=== PATIENT | female | born 1965 | race Caucasian/White ===

== ENCOUNTER 2020-01-20 14:35 | Outpatient (REF) | payer MEDICAID, SELFPAY ==
[2020-01-20 16:34] LABS: Basophils Absolute Auto 0.1 X10*3/uL (0.0-0.2); Basophils Percent Auto 0.7 % (0-2); Eosinophils Absolute Auto 0.1 X10*3/uL (0.0-0.4); Eosinophils Percent Auto 1.4 % (0-4); Hematocrit 36.3 % (37-47); Hemoglobin 11.6 g/dl (12.0-16.0); Imm Gran Abs Auto 0.02 X10*3/uL (0.00-0.03); Imm Gran Pct Auto 0.3 % (0.0-0.4); Lymphocytes Absolute Auto 1.8 X10*3/uL (1.2-4.9); Lymphocytes Percent Auto 24.6 % (20-40); MANUAL DIFF FLAG NO; Mean Corpuscular Hemoglobin 28.1 pg (27.0-33.0); Mean Corpuscular Volume 87.9 fL (80-98); Mean Platelet Volume 11.1 fL (9.4-12.3); Monocytes Absolute Auto 0.5 X10*3/uL (0.1-1.2); Monocytes Percent Auto 6.3 % (2-11); Neutrophils Absolute Auto 4.9 X10*3/uL (2.0-8.3); Neutrophils Percent Auto 66.7 % (45-73); Platelet Count 373 X10*3/uL (160-400); Red Blood Count 4.13 X10*6/uL (4.20-5.50); Red Cell Distribution Width 13.2 % (11.0-16.0); White Blood Count 7.3 X10*3/uL (4.8-10.8)
[2020-01-20 17:22] LABS: Thyroid Stimulating Hormone 0.28 mIU/mL (0.32-4.0)
[2020-01-20 17:54] LABS: Ferritin 42 ng/mL (10-250)
== END 2020-01-20 14:36 | disposition home or self-care (01) ==
LOC: HO.HMGCLDS 14:35
PROVIDERS: PCP Internal Medicine; Visit Provider Internal Medicine
DX: D64.9 Anemia, unspecified (principal); E78.00 Pure hypercholesterolemia, unspecified; I10 Essential (primary) hypertension; N30.00 Acute cystitis without hematuria; R30.0 Dysuria; R35.0 Frequency of micturition
CPT/HCPCS: 36415; 82728; 84443; 85025; 87086

== ENCOUNTER 2020-03-04 12:35 | Outpatient (REF) | payer MEDICAID, SELFPAY ==
[2020-03-04 14:56] LABS: Vitamin B12 315 pg/mL (200-900)
[2020-03-05 08:56] LABS: Lyme Abs Screen <0.90 index
== END 2020-03-04 12:36 | disposition home or self-care (01) ==
LOC: HO.HMGCLDS 12:35
PROVIDERS: PCP Internal Medicine; Visit Provider Internal Medicine
DX: G57.81 Other specified mononeuropathies of right lower limb (principal); R51.9 Headache, unspecified
CPT/HCPCS: 82607; 86618

== ENCOUNTER 2020-04-23 10:26 | Outpatient (REF) | payer MEDICAID, SELFPAY ==
[2020-04-23 11:44] LABS: Cholesterol 229 mg/dL; HDL Cholesterol 63 mg/dL; LDL Cholesterol Calculated 149 mg/dl; Triglycerides 86 mg/dL
[2020-04-23 12:04] LABS: Thyroid Stimulating Hormone 1.25 uIU/mL (0.32-4.0)
== END 2020-04-23 10:27 | disposition home or self-care (01) ==
LOC: HO.HMGCLDS 10:26
PROVIDERS: PCP Internal Medicine; Visit Provider Internal Medicine
DX: E03.8 Other specified hypothyroidism (principal); D64.9 Anemia, unspecified
CPT/HCPCS: 36415; 80061; 84443

== ENCOUNTER 2020-04-25 09:27 | Outpatient (REF) | payer MEDICAID, SELFPAY ==
--- NOTE | 2020-04-25 09:30 | MM_ITS ---
EXAMINATION: MM SCREENING DIGITAL BREAST TOMOSYNTHESIS, BILATERAL CLINICAL INFORMATION: Screening. Asymptomatic. The lifetime risk of breast cancer based on the Tyrer-Cuzick Model is 8%. COMPARISON: Mammography: 04/15/2019, 03/21/2018, 03/13/2017, 02/18/2017 TECHNIQUE: Digital breast tomosynthesis is performed in both the craniocaudal and mediolateral oblique views along with computer-aided detection (CAD). Synthesized 2D images are generated from the tomosynthesis. Additional exaggerated right CC view is provided. FINDINGS: There are scattered areas of fibroglandular density (ACR BI-RADS breast composition Category b). There are no significant masses, abnormal calcifications, or other abnormalities. There is a stable smooth nodule again seen 6:00 right breast similar to prior studies. Low right axillary tail node stable. No significant changes from prior studies. MM/MM tomosynthesis screening BI IMPRESSION: No mammographic evidence of malignancy. ASSESSMENT: BI-RADS 2: Benign RECOMMENDATION: Routine annual mammography screening. This patient's information was entered into a reminder system with a target due date for their next mammogram.
== END 2020-04-25 09:28 | disposition home or self-care (01) ==
LOC: HO.MAMMO 09:27
PROVIDERS: PCP Internal Medicine; Visit Provider Internal Medicine
DX: Z12.31 Encounter for screening mammogram for malignant neoplasm of breast (principal)
CPT/HCPCS: 77063; 77067

== ENCOUNTER 2020-10-08 10:38 | Outpatient (REF) | payer MEDICAID, SELFPAY ==
[2020-10-08 14:25] LABS: Alanine Aminotransferase 19 U/L (0-31); Albumin Level 3.9 g/dL (3.5-5.0); Alkaline Phosphatase 80 U/L (39-117); Anion Gap 14 (12-20); Aspartate Amino Transferase 20 U/L (5-31); Bilirubin Total 0.5 mg/dL (0.0-1.0); Blood Urea Nitrogen 19 mg/dL (9-16); Calcium 8.9 mg/dL (8.4-10.2); Carbon Dioxide 23 mmol/L (22-29); Chloride 106 mmol/L (96-108); Cholesterol 211 mg/dL; Estimated Glomerular Filt Rate > 60; Glucose Random 78 mg/dL (60-115); HDL Cholesterol 58 mg/dL; LDL Cholesterol Calculated 138 mg/dl; Potassium 4.1 mmol/L (3.3-5.1); Sodium 139 mmol/L (135-145); Total Protein 6.3 g/dL (6.5-8.0); Triglycerides 78 mg/dL
[2020-10-08 14:36] LABS: Thyroid Stimulating Hormone 0.22 uIU/mL (0.32-4.0)
== END 2020-10-08 10:39 | disposition home or self-care (01) ==
LOC: HO.HMGCLDS 10:38
PROVIDERS: PCP Internal Medicine; Visit Provider Internal Medicine
DX: E03.9 Hypothyroidism, unspecified (principal); E78.00 Pure hypercholesterolemia, unspecified; I10 Essential (primary) hypertension; R53.83 Other fatigue
CPT/HCPCS: 36415; 80053; 80061; 84443

== ENCOUNTER 2021-05-08 09:46 | Outpatient (REF) | payer MEDICAID, SELFPAY ==
--- NOTE | ~2021-05-08 | MM_ITS ---
EXAMINATION: MM SCREENING DIGITAL BREAST TOMOSYNTHESIS, BILATERAL CLINICAL INFORMATION: Screening. Asymptomatic. The lifetime risk of breast cancer based on the Tyrer-Cuzick Model is 8%. COMPARISON: Mammography: 04/25/2020, 04/15/2019, 03/21/2018 TECHNIQUE: Digital breast tomosynthesis is performed in both the craniocaudal and mediolateral oblique views along with computer-aided detection (CAD). Synthesized 2D images are generated from the tomosynthesis. FINDINGS: There are scattered areas of fibroglandular density (ACR BI-RADS breast composition Category b). There are no significant masses, abnormal calcifications, or other abnormalities. Smooth nodule mid 6:00 right breast is similar to prior exams. There is no developing density. Low right axillary tail nodes stable. Skin contours are smooth. There are no significant changes. MM/MM tomosynthesis screening BI IMPRESSION: No significant changes from prior exams. ASSESSMENT: BI-RADS 2: Benign RECOMMENDATION: Routine annual mammography screening. This patient's information was entered into a reminder system with a target due date for their next mammogram.
== END 2021-05-08 09:47 | disposition home or self-care (01) ==
LOC: HO.MAMMO 09:46
PROVIDERS: PCP Internal Medicine; Visit Provider Internal Medicine
DX: Z12.31 Encounter for screening mammogram for malignant neoplasm of breast (principal)
CPT/HCPCS: 77063; 77067

== ENCOUNTER 2021-05-19 08:34 | Outpatient (REF) | payer MEDICAID, SELFPAY ==
[2021-05-19 11:30] LABS: MANUAL DIFF FLAG NO
[2021-05-19 11:37] LABS: Basophils Percent Auto 0.7 % (0-2); Eosinophils Absolute Auto 0.2 X10*3/uL (0.0-0.4); Eosinophils Percent Auto 3.5 % (0-4); Hematocrit 36.8 % (37.0-47.0); Hemoglobin 11.6 g/dl (12.0-16.0); Imm Gran Abs Auto 0.01 X10*3/uL (0.00-0.03); Imm Gran Pct Auto 0.2 % (0.0-0.4); Lymphocytes Absolute Auto 1.4 X10*3/uL (1.2-4.9); Mean Corpuscular HGB Conc 31.5 g/dl (31.0-35.0); Mean Corpuscular Hemoglobin 27.4 pg (27.0-33.0); Mean Platelet Volume 10.8 fL (9.4-12.3); Monocytes Absolute Auto 0.3 X10*3/uL (0.1-1.2); Neutrophils Absolute Auto 2.7 x10*3/uL (2.0-8.3); Neutrophils Percent Auto 58.6 % (45-73); Platelet Count 322 X10*3/uL (160-400); Red Blood Count 4.23 X10*6/uL (4.20-5.50); Red Cell Distribution Width 14.1 % (11.0-16.0); White Blood Count 4.6 X10*3/uL (4.8-10.8)
[2021-05-19 12:05] LABS: Alanine Aminotransferase 19 U/L (0-31); Alkaline Phosphatase 64 U/L (39-117); Anion Gap 13 (12-20); Aspartate Amino Transferase 18 U/L (5-31); Bilirubin Total 0.4 mg/dL (0.0-1.0); Blood Urea Nitrogen 27 mg/dL (9-16); Calcium 9.4 mg/dL (8.4-10.2); Carbon Dioxide 28 mmol/L (22-29); Chloride 105 mmol/L (96-108); Cholesterol 232 mg/dL; Estimated Glomerular Filt Rate 59; Glucose Random 86 mg/dL (60-115); HDL Cholesterol 51 mg/dL; LDL Cholesterol Calculated 162 mg/dl; Potassium 4.5 mmol/L (3.3-5.1); Sodium 141 mmol/L (135-145); Total Protein 6.6 g/dL (6.5-8.0); Triglycerides 95 mg/dL
[2021-05-19 12:29] LABS: T4 Thyroxine 9.2 ug/dL (4.5-12.0); Thyroid Stimulating Hormone 0.48 uIU/mL (0.32-4.0)
[2021-05-21 04:02] LABS: Triiodothyronine T3 Free 2.8 pg/mL (2.3-4.2)
== END 2021-05-19 08:35 | disposition home or self-care (01) ==
LOC: HO.HMGCLDS 08:34
PROVIDERS: Visit Provider Internal Medicine
DX: Z00.00 Encounter for general adult medical examination without abnormal findings (principal); E03.9 Hypothyroidism, unspecified; E78.00 Pure hypercholesterolemia, unspecified; I10 Essential (primary) hypertension; R87.619 Unspecified abnormal cytological findings in specimens from cervix uteri
CPT/HCPCS: 36415; 80053; 80061; 84436; 84443; 84481; 85025

== ENCOUNTER 2021-11-03 07:34 | Outpatient (REF) | payer MEDICAID, SELFPAY ==
[2021-11-03 09:20] LABS: Alanine Aminotransferase 23 U/L (0-31); Albumin Level 3.8 g/dL (3.5-5.0); Alkaline Phosphatase 81 U/L (39-117); Anion Gap 10 (12-20); Aspartate Amino Transferase 15 U/L (5-31); Bilirubin Total 0.6 mg/dL (0.0-1.0); Blood Urea Nitrogen 18 mg/dL (9-16); Calcium 8.6 mg/dL (8.4-10.2); Carbon Dioxide 27 mmol/L (22-29); Chloride 104 mmol/L (96-108); Cholesterol 217 mg/dL; Estimated Glomerular Filt Rate > 60; Glucose Random 89 mg/dL (60-115); HDL Cholesterol 52 mg/dL; LDL Cholesterol Calculated 151 mg/dl; Potassium 4.4 mmol/L (3.3-5.1); Sodium 137 mmol/L (135-145); Total Protein 6.2 g/dL (6.5-8.0); Triglycerides 72 mg/dL
[2021-11-03 09:46] LABS: Thyroid Stimulating Hormone 1.41 uIU/mL (0.32-4.0)
== END 2021-11-03 07:35 | disposition home or self-care (01) ==
LOC: HO.LAB 07:34
PROVIDERS: PCP Internal Medicine; Visit Provider Internal Medicine
DX: E03.9 Hypothyroidism, unspecified (principal); M70.51 Other bursitis of knee, right knee; Z76.89 Persons encountering health services in other specified circumstances
CPT/HCPCS: 36415; 80053; 80061; 84443

== ENCOUNTER 2022-05-14 10:28 | Outpatient (REF) | payer MEDICAID, SELFPAY ==
--- NOTE | ~2022-05-14 | MM_ITS ---
EXAMINATION: MM SCREENING DIGITAL BREAST TOMOSYNTHESIS, BILATERAL CLINICAL INFORMATION: Screening. Asymptomatic. The lifetime risk of breast cancer based on the Tyrer-Cuzick Model is 7%. COMPARISON: Mammography: 05/08/2021, 04/25/2020, 04/15/2019 TECHNIQUE: Digital breast tomosynthesis is performed in both the craniocaudal and mediolateral oblique views along with computer-aided detection (CAD). Synthesized 2D images are generated from the tomosynthesis. FINDINGS: There are scattered areas of fibroglandular density (ACR BI-RADS breast composition Category b). There are no significant masses, abnormal calcifications, or other abnormalities. There is no architectural abnormality or developing density. Stable smooth small oval nodule again noted mid 6:00 right breast similar to prior studies. The skin contours are smooth. MM/MM tomosynthesis screening BI IMPRESSION: No mammographic evidence of malignancy. ASSESSMENT: BI-RADS 2: Benign RECOMMENDATION: Routine annual mammography screening. This patient's information was entered into a reminder system with a target due date for their next mammogram.
== END 2022-05-14 10:29 | disposition home or self-care (01) ==
LOC: HO.MAMMO 10:28
PROVIDERS: PCP Internal Medicine; Visit Provider Internal Medicine
DX: Z12.31 Encounter for screening mammogram for malignant neoplasm of breast (principal)
CPT/HCPCS: 77063; 77067

== ENCOUNTER 2022-07-20 16:25 | Outpatient (REF) | payer MEDICAID, SELFPAY ==
[2022-07-20 16:33] LABS: MANUAL DIFF FLAG NO
[2022-07-20 17:24] LABS: Basophils Absolute Auto 0.1 X10*3/uL (0.0-0.2); Basophils Percent Auto 0.7 % (0-2); Eosinophils Absolute Auto 0.2 X10*3/uL (0.0-0.4); Eosinophils Percent Auto 2.4 % (0-4); Hemoglobin 11.8 g/dl (12.0-16.0); Imm Gran Abs Auto 0.02 X10*3/uL (0.00-0.03); Imm Gran Pct Auto 0.3 % (0.0-0.4); Lymphocytes Absolute Auto 2.2 X10*3/uL (1.2-4.9); Lymphocytes Percent Auto 30.7 % (20-40); Mean Corpuscular HGB Conc 31.9 g/dl (31.0-35.0); Mean Corpuscular Hemoglobin 27.8 pg (27.0-33.0); Mean Corpuscular Volume 87.3 fL (80.0-98.0); Mean Platelet Volume 10.4 fL (9.4-12.3); Monocytes Absolute Auto 0.5 X10*3/uL (0.1-1.2); Monocytes Percent Auto 7.6 % (2-11); Neutrophils Absolute Auto 4.1 x10*3/uL (2.0-8.3); Neutrophils Percent Auto 58.3 % (45-73); Platelet Count 345 X10*3/uL (160-400); Red Blood Count 4.24 X10*6/uL (4.20-5.50); Red Cell Distribution Width 13.7 % (11.0-16.0); White Blood Count 7.1 X10*3/uL (4.8-10.8)
[2022-07-20 17:45] LABS: Alanine Aminotransferase 43 U/L (0-31); Albumin Level 4.4 g/dL (3.5-5.0); Alkaline Phosphatase 79 U/L (39-117); Anion Gap 14 (12-20); Aspartate Amino Transferase 34 U/L (5-31); Bilirubin Total 0.4 mg/dL (0.0-1.0); Blood Urea Nitrogen 29 mg/dL (9-16); Calcium 9.4 mg/dL (8.4-10.2); Carbon Dioxide 29 mmol/L (22-29); Chloride 103 mmol/L (96-108); Cholesterol 274 mg/dL; Estimated Glomerular Filt Rate > 60; Glucose Random 89 mg/dL (60-115); HDL Cholesterol 66 mg/dL; LDL Cholesterol Calculated 183 mg/dl; Sodium 142 mmol/L (135-145); Triglycerides 128 mg/dL
[2022-07-20 18:02] LABS: Thyroid Stimulating Hormone 1.89 uIU/mL (0.32-4.0)
== END 2022-07-20 16:26 | disposition home or self-care (01) ==
LOC: HO.LAB 16:25
PROVIDERS: PCP Internal Medicine; Visit Provider Internal Medicine
DX: Z00.00 Encounter for general adult medical examination without abnormal findings (principal); E78.00 Pure hypercholesterolemia, unspecified; I10 Essential (primary) hypertension
CPT/HCPCS: 36415; 80053; 80061; 84443; 85025

== ENCOUNTER 2023-05-20 10:04 | Outpatient (REF) | payer MEDICAID, SELFPAY | END 2023-05-20 10:05 | disposition home or self-care (01) | LOC: HO.MAMMO 10:04 | PROVIDERS: PCP Internal Medicine; Visit Provider Internal Medicine | DX: Z12.31 Encounter for screening mammogram for malignant neoplasm of breast (principal) | CPT/HCPCS: 77063; 77067 ==

== ENCOUNTER → 2023-05-20 10:15 | Outpatient (BNV) | payer MEDICAID, SELFPAY | PROVIDERS: PCP Internal Medicine; Visit Provider Radiology Diagnostic Radiology | DX: Z12.31 Encounter for screening mammogram for malignant neoplasm of breast (principal) | CPT/HCPCS: 77063; 77067 ==

== ENCOUNTER 2023-08-02 08:08 | Outpatient (REF) | payer MEDICAID, SELFPAY ==
[2023-08-02 11:17] LABS: Alanine Aminotransferase 26 U/L (0-31); Albumin Level 3.9 g/dL (3.5-5.0); Alkaline Phosphatase 75 U/L (39-117); Anion Gap 11 (12-20); Aspartate Amino Transferase 23 U/L (5-31); Bilirubin Total 0.5 mg/dL (0.0-1.0); Blood Urea Nitrogen 21 mg/dL (9-16); Calcium 9.1 mg/dL (8.4-10.2); Carbon Dioxide 28 mmol/L (22-29); Chloride 105 mmol/L (96-108); Cholesterol 164 mg/dL (<200); Estimated Glomerular Filt Rate > 60; Glucose Random 93 mg/dL (60-115); HDL Cholesterol 57 mg/dL (>40); LDL Cholesterol Calculated 96 mg/dL (<100); Potassium 4.1 mmol/L (3.3-5.1); Sodium 140 mmol/L (135-145); Total Protein 6.9 g/dL (6.5-8.0); Triglycerides 57 mg/dL (<150)
[2023-08-02 11:34] LABS: Thyroid Stimulating Hormone 0.51 uIU/mL (0.32-4.0)
== END 2023-08-02 08:09 | disposition home or self-care (01) ==
LOC: HO.LAB 08:08
PROVIDERS: PCP Internal Medicine; Visit Provider Internal Medicine
DX: E03.9 Hypothyroidism, unspecified (principal); E78.00 Pure hypercholesterolemia, unspecified; I10 Essential (primary) hypertension
CPT/HCPCS: 36415; 80053; 80061; 84443

== ENCOUNTER 2024-06-05 13:09 | Outpatient (REF) | payer MEDICAID, SELFPAY ==
--- OUTSIDE RECORDS SUMMARY | 2024-06-05 13:27 | XMS_ITS | Encounter Summary ---
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 Encounter Details Date Type Department Care Team (Late st Contact Info) Description 05/08/2024 10:00 AM EST Office Visit Orthopedic Surgery - [place] [address] [phone] Clemente Nevarez DPM [address] [address] Bunion, right foot (Primary Dx); Contracture, right foot; Hammertoes of both feet Social History Tobacco Use Types Packs/Day Years Used Date Smoking Tobacco: Never Assessed Comments Unknown Sex and Gender Information Value Date Recorded Sex Assigned at Not on file Legal Sex Female 11:02 AM EDT Gender Identity Not on file Sexual Orientation Not on file documented as of this encounter Last Filed Vital Signs Vital Sign Reading Time Taken Comments Blood Pressure - - Pulse - - Temperature - - Respiratory Rate - - Oxygen Saturation - - Inhaled Oxygen Concentration - - Weight 108 kg (238 lb) 05/08/2024 10:12 AM EST Height 154.9 cm (5' 0.98 ) 05/08/2024 10:[address] Body Mass Index 44.99 05/08/2024 10:12 AM EST documented in this encounter Progress Notes * Clemente Nevarez DPM - 05/08/2024 10:00 AM EST Referring MD: Coleen IDENTIFIER: @TITLE@ Stan is a 58 y.o. year old female who presents for consultation. CC: Right foot pain HPI: 58-year-old female returns office chief complaint of right foot pain. Patient notes that the great toe continues to be painful on ambulation. Patient is having some increased contracture to her second digit which causes pain in close toed shoes. Patient was educated on surgical options versus continued conservative therapy previously. Patient would like to further discuss surgical intervention during today's visit. ROS: GENERAL: Pt denies nausea, fever, vomiting, chills, or shortness of breath. Pt in NAD. CARDIOLOGY: pt denies chest pain, palpitations LUNGS: pt denies shortness of breath MUSCULOSKELETAL: See HPI, otherwise no joint pain or swelling, back pain, or muscle pain. SKIN: see HPI, otherwise no lesions, rash or itching NEURO: No persistent headache, weakness or numbness The remainder of the review of systems is noncontributory PAST MEDICAL HISTORY: There is no problem list on file for this patient. SOCIAL HISTORY: Social History Tobacco Use Smoking status: Not on file Smokeless tobacco: Not on file Substance Use Topics Alcohol use: Not on file ACTIVE MEDICATIONS: No outpatient medications have been marked as taking for the 05/08/24 encounter (Office Visit) with Clemente Nevarez DPM. ALLERGIES: @ALL@ PHYSICAL EXAM: Height 1.549 m (60.98 ), weight 108 kg (238 lb). PODIATRIC EXAMINATION: GENERAL: Patient appears well nourished, with NAD. VASCULAR: Dorsalis pedis pulses are 2/4 bilaterally and Posterior tibial pulses are 2/4 bilaterally. Capillary filling time within normal limits the digits. No pallor on elevation or rubor on dependency. Positive hair growth. No varicosities. Denies rest pain or claudication pain. NEUROLOGICAL: Sharp/dull sensation intact, protective sensation intact 10/10 with 5.07 semmes lilly bilaterally, vibratory sensation with tuning fork intact to the tibial tuberosity. ORTHOPEDIC: Good muscle strength 5/5 of all flexors and extensors. Dorsi flexion of ankle ,10 degrees, plantar flexion WNL. No muscle atrophy. Severe bunion deformity with severe HAV deformity and second digit hammertoe contracture that is rigid. Pain on palpation of medial eminence. Pain over the PIPJ of the second digit on the right foot. DERMATOLOGICAL:.No masses or skin lesions noted. Normal skin temperature, normal skin turgor. BIOMECHANICS: STJ ROM wnl, MTJ ROM wnl, 1st MPJ ROM wnl. IMAGING: Radiographs taken and reviewed. No evidence of diandra abnormality noted. No evidence of fracture or dislocation noted. Mild narrowing of first metatarsal phalangeal joint appreciated. Mild arthrosis noted to dorsal midfoot, localized to midtarsal joints. Hammered digits noted to interphalangeal joints. Increase in metatarsal angle between 1st and 2nd ray. Accessory ossicles noted. No evide nce of foreign body. No evidence of gas or soft tissue. No evidence of cortical erosion noted. IMPRESSION: 1. Bunion, right foot 2. Contracture, right foot 3. Hammertoes of both feet PLAN: Pt was seen and examined, history reviewed. Treatment options for first MPJ arthritis with second digit hammertoe correction were discussed, non-operative treatment would involve tapping, strapping, adjustments in shoe gear, orthotics insoles,rest, bracing and edema control. There is potential for the deformities to stabilize without surgery yet there may still be a need for delayed surgery and joint distructive procedures. There is potential for prolonged pain with surgery and non-operative care would avoid incision problems, fixation complications and anesthesia risks. Surgery has added risks including but not limited to infection, incision pain, neuritis or numbness and eventual need for removal of hardware. Right foot cheilectomy with implant and hammertoe healing was discussed in relation to operative treatment. Recovery and post operative immobilization was discussed based on the various treatment options. A decision was made to pursue right foot cheilectomy with implant and second digit hammertoe surgery. Patient voices understanding of the risks and benefits and would like to proceed with surgery. Informed consent for surgery was obtained verbally and in writing today. Weight bearing status: Weightbearing as tolerated in surgical shoe for 4 to 6 weeks Work&Activity restrictions: Impact of undergoing surgery to work and daily activity was discussed today Pain management: Postoperative pain regiment were discussed in great detail with the patient. The patient was also encouraged to aggressively elevate and ice postoperatively to help with swelling andpain control. The patient was in agreement with this plan. The patient will be prescribed oxycodone5 mg every 6 hours for postoperative pain management. VTE Risk assessment: Risk of DVT/ PE were discussed in relation to immobilization, inactivity, injury, surgery, medication and personal risk factors. Signs and symptoms of a blood clot were discussedincluding action plan if the patient experiences these signs or symptoms. Methods of prevention and risk reduction were explained. Mechanical prophylaxis including ROM and mobilization is encouraged as much as possible. The patient???s risk for deep vein thrombosis was also assessed today. In regards to major risk factors they: - Do not have personal history of DVT - Do not have known active cancer - Do not have known clotting disorder - Do not have family history of DVT Pending foot surgery and current level of immobilization are risk factors. Measure taken to decrease their risk of deep vein thrombosis will consist of detailed education, as well as lower extremity range of motion. Chemical prophylaxis is not recommended based on patients history, procedure and postoperative plan. We discussed ASA 325mg qd as a precautionary measure to further decrease potential for clot formation for as long as the postoperative offloading device is required Planned procedure(s): Right foot cheilectomy with implant second digit hammertoe surgery WB status: Weightbearing as tolerated for 4 to 6 weeks in surgical shoe DVT Prophylaxis: 325 mg QD Pain medication: Oxycodone 5 mg every 6 hours Clemente Nevarez DPM documented in this encounter Plan of Treatment Upcoming Encounters Date Type Department Care Team (Latest Contact Info) Description 10/11/2024 7:30 AM EDT Hospital Encounter [facility] Main [place] [address] [place] [phone] Clemente Nevarez DPM [address] [address] 10/11/2024 7:30 AM EDT - 10/11/2024 9:30 AM EDT Surgery [facility] OR [address] [place] [phone] Clemente Nevarez DPM [address] [address] CHEILECTOMY RIGHT GREAT TOE [27085 (CPT??)] 10/24/2024 1:00 PM EDT Office Visit Orthopedic Surgery - [place] [address] 175 [facility] [address] [place] [phone] Clemente Nevarez, DPIgnacio [address] [facility] [address] [facility] [address] [place] [address] Scheduled Procedures Name Priority Associated Diagnoses Date/Ti me CHEILECTOMY GREAT TOE Bunion, right foot Contracture, right foot Hammertoes of both feet 10/11/2024 7:30 AM EDT ARTHROPLASTY TOE Bunion, right foot Contracture, right foot Hammertoes of both feet 10/11/2024 7:30 AM EDT documented as of this encounter Visit Diagnoses Diagnosis Bunion, right foot- Primary Bunion Contracture, right foot Hammertoes of both feet Bunion, right foot Bunion Contracture, right foot Hammertoes of both feet Bunion, right foot Bunion Contracture, right foot Hammertoes of both feet documented in this encounter Orders Case Request Count Last Ordered Date First Orde red Date CASE REQUEST OPERATING ROOM 1 05/08/2024 documented in this encounter Care Teams Career Development Specialist Relationship Specialty Start Date End Date Obdulia Horne MD [address] [place] [address] [place] [address] PCP - General 09/08/23 documented as of this encounter
--- OUTSIDE RECORDS SUMMARY | 2024-06-05 13:27 | XMS_ITS | Encounter Summary ---
Author Organization [facility] Address [address] [place] [phone] Care Team Providers Care Ironer Name Role Phone Obdulia Horne MD Primary Care Provider Encounter Details Date Type Department Care Team (Late st Contact Info) Description 05/29/2024 Telephone Orthopedic Surgery - [place] [address] [phone] Clemente Nevarez DPM [address] [address] Social History Tobacco Use Types Packs/Day Years Used Date Smoking Tobacco: Never Assessed Comments Unknown Sex and Gender Information Value Date Recorded Sex Assigned at Not on file Legal Sex Female 11:02 AM EDT Gender Identity Not on file Sexual Orientation Not on file documented as of this encounter Progress Notes * Tiff Gaffney - 05/29/2024 9:56 AM EST Rima is calling back in regarding getting booked for surgery. She states its been over 3 weeks and she still has not received a call. Please advise. Thanks documented in this encounter Plan of Treatment Upcoming Encounters Date Type Department Care Team (Latest Contact Info) Description 10/11/2024 7:30 AM EDT Hospital Encounter [facility] Main OR [address] [place] [phone] Clemente Nevarez DPM [address] [address] 10/11/2024 7:30 AM EDT - 10/11/2024 9:30 AM EDT Surgery [facility] Main [place] [address] [place] [phone] Clemente Nevarez DPM [address] [address] CHEILECTOMY RIGHT GREAT TOE [50335 (CPT??)] 10/24/2024 1:00 PM EDT Office Visit Orthopedic Surgery - [place] [address] [phone] Clemente Nevarez DPM [address] [address] Scheduled Procedures Name Priority Associated Diagnoses Date/Ti me CHEILECTOMY GREAT TOE Bunion, right foot Contracture, right foot Hammertoes of both feet 10/11/2024 7:30 AM EDT ARTHROPLASTY TOE Bunion, right foot Contracture, right foot Hammertoes of both feet 10/11/2024 7:30 AM EDT documented as of this encounter Visit Diagnoses Not on filedocumented in this encounter Care Teams Ironer Relationship Specialty Start Date End Date Obdulia Horne MD [address] [place] [address] [place] [address] PCP - General 09/08/23 documented as of this encounter
--- OUTSIDE RECORDS SUMMARY | 2024-06-05 13:27 | XMS_ITS | Clinical Summary ---
Author Organization 175 [facility] Address [address] [place] [address] Phone Care Team Providers Care Machine Fitter Name Role Phone Obdulia Horne MD Primary Care Provider [phone] Allergies No known active allergies Active Problems Problem Noted Date Diagnosed Date Bunion, right foot 05/08/2024 Contracture, right foot 05/08/2024 Hammertoes of both feet 05/08/2024 Encounters Date Type Department Care Team Description 05/29/2024 Telephone Orthopedic Surgery [place] [address] [phone] Clemente Nevarez DPM 05/08/2024 10:00 AM EST Office Visit Orthopedic [facility] [address] [phone] Clemente Nevarez DPM Bunion, right foot (Primary Dx); Contracture, right foot; Hammertoes of both feet 04/12/2024 Telephone Orthopedic [facility] [address] [phone] Clemente Nevarez DPM SURGERY from Last 3 Months Social History Tobacco Use Types Packs/Day Years Used Date Smoking Tobacco: Never Assessed Comments Unknown Sex and Gender Information Value Date Recorded Sex Assigned at Not on file Legal Sex Female 11:02 AM EDT Gender Identity Not on file Sexual Orientation Not on file Last Filed Vital Signs Vital Sign Reading Time Taken Comments Blood Pressure - - Pulse - - Temperature - - Respiratory Rate - - Oxygen Saturation - - Inhaled Oxygen Concentration - - Weight 108 kg (238 lb) 05/08/2024 10:12 AM EST Height 154.9 cm (5' 0.98 ) 05/08/2024 10:[address] Body Mass Index 44.99 05/08/2024 10:12 AM EST Plan of Treatment Upcoming Encounters Date Type Department Care Team (Latest Contact Info) Description 10/11/2024 7:30 AM EDT Hospital Encounter [facility] Main OR [address] [place] [phone] Clemente Nevarez DPM [address] [address] 10/11/2024 7:30 AM EDT - 10/11/2024 9:30 AM EDT Surgery [facility] Main [place] [address] [place] [phone] Clemente Nevarez DPM [address] [address] CHEILECTOMY RIGHT GREAT TOE [63713 (CPT??)] 10/24/2024 1:00 PM EDT Office Visit Orthopedic Surgery - [place] [address] [phone] Clemente Nevarez DPM [address] [address] Scheduled Procedures Name Priority Associated Diagnoses Date/Ti me CHEILECTOMY GREAT TOE Bunion, right foot Contracture, right foot Hammertoes of both feet 10/11/2024 7:30 AM EDT ARTHROPLASTY TOE Bunion, right foot Contracture, right foot Hammertoes of both feet 10/11/2024 7:30 AM EDT Health Maintenance Due Date Last Done Comments Breast Cancer Screening 1965 DTaP,Tdap,and Td Vaccines (1 - Tdap) 11/25/1983 Hepatitis B Vaccines (1 of 3 - 19+ 3-dose series) 11/25/1983 Cervical Cancer Screening: P ap Smear 1985 Pneumococcal Vaccine: 50+ Years (1 of 1 - PCV) 2014 Zoster Vaccines (1 of 2) 2014 Cholesterol Screening (Lipid Panel) 11/17/2023 Colorectal Cancer Screening: Colonoscopy 11/17/2023 Depression Screening 11/17/2023 HIV Screening 11/17/2023 Hepatitis C Screening 11/17/2023 Social Influencers of Health Screening 11/17/2023 COVID-19 Vaccine (4 - 2023-2 5 season) 2023 07/07/2020, 06/20/2020, 05/30/2020 Influenza Vaccine (#1) 2023 01/31/2014 RSV Immunization Patients 60 + Years Old (1 - 1-dose 75+ series) 11/25/2039 HIB Vaccines Aged Out No longer eligi ble based on patient's age to complete this topic HPV Vaccines Aged Out No longer eligi ble based on patient's age to complete this topic Hepatitis A Vaccines Aged Out No long er eligible based on patient's age to complete this topic IPV Vaccines Aged Out No longer eligi ble based on patient's age to complete this topic MMR Vaccines Aged Out No longer eligi ble based on patient's age to complete this topic Meningococcal ACWY Vaccine Aged Out N o longer eligible based on patient's age to complete this topic Meningococcal B Vacine Aged Out No lo nger eligible based on patient's age to complete this topic Pneumococcal Vaccine: Pediatrics (0 to 5 Years) and At-Risk Patients (6 to 64 Years) Aged Out No longer eligible b ased on patient's age to complete this topic RSV Immunization Patients Under 20 months Aged Out No longer eligible b ased on patient's age to complete this topic Varicella Vaccines Aged Out No longer eligible based on patient's age to complete this topic Insurance [place] Care Teams Machine Fitter Relationship Specialty Start Date End Date Obdulia Horne MD [address] [place] [address] [place] [address] PCP - General 09/08/23
--- OUTSIDE RECORDS SUMMARY | 2024-06-05 13:27 | XMS_ITS | Encounter Summary ---
Author Organization [facility] Address [address] [place] [address] Care Team Providers Care Hoof And Shoe Inspector Name Role Phone Obdulia Horne MD Primary Care Provider [phone] Reason for Visit * Reason Onset Date Comments SURGERY 04/12/2024 Encounter Details Date Type Department Care Team (Late st Contact Info) Description 04/12/2024 Telephone Orthopedic Surgery - [place] [address] [phone] Clemente Nevarez DPM [address] [address] SURGERY Social History Tobacco Use Types Packs/Day Years Used Date Smoking Tobacco: Never Assessed Comments Unknown Sex and Gender Information Value Date Recorded Sex Assigned at Not on file Legal Sex Female 11:02 AM EDT Gender Identity Not on file Sexual Orientation Not on file documented as of this encounter Progress Notes * Juany Castanon - 04/19/2024 3:24 PM EST Rima is calling requesting a call back to schedule surgery that was discuss in last office visit * Delfina García - 04/12/2024 2:39 PM EST Patient called stating she would like to proceed with surgery. documented in this encounter Plan of Treatment Upcoming Encounters Date Type Department Care Team (Latest Contact Info) Description 10/11/2024 7:30 AM EDT Hospital Encounter [facility] Main OR [address] [place] [phone] Clemente Nevarez DPM [address] [address] 10/11/2024 7:30 AM EDT - 10/11/2024 9:30 AM EDT Surgery [facility] Main OR [address] [place] [phone] Clemente Nevarez DPM [address] [address] CHEILECTOMY RIGHT GREAT TOE [59561 (CPT??)] 10/24/2024 1:00 PM EDT Office Visit Orthopedic Surgery - [place] [address] [phone] Clemente Nevarez DPM [address] [address] Scheduled Procedures Name Priority Associated Diagnoses Date/Ti me CHEILECTOMY GREAT TOE Bunion, right foot Contracture, right foot Hammertoes of both feet 10/11/2024 7:30 AM EDT ARTHROPLASTY TOE Bunion, right foot Contracture, right foot Hammertoes of both feet 10/11/2024 7:30 AM EDT documented as of this encounter Visit Diagnoses Not on filedocumented in this encounter Care Teams Hoof And Shoe Inspector Relationship Specialty Start Date End Date Obdulia Horne MD [address] [place] [address] [place] [address] PCP - General 09/08/23 documented as of this encounter
== END 2024-06-05 13:10 | disposition home or self-care (01) ==
LOC: HO.MAMMO 13:09
PROVIDERS: PCP Internal Medicine; Visit Provider Internal Medicine
DX: Z12.31 Encounter for screening mammogram for malignant neoplasm of breast (principal)
CPT/HCPCS: 77063; 77067

== ENCOUNTER → 2024-06-05 13:30 | Outpatient (BNV) | payer MEDICAID, SELFPAY | PROVIDERS: PCP Internal Medicine; Visit Provider Internal Medicine | DX: Z12.31 Encounter for screening mammogram for malignant neoplasm of breast (principal) | CPT/HCPCS: 77063; 77067 ==

== ENCOUNTER 2024-09-04 10:27 | Outpatient (REF) | payer MEDICAID, SELFPAY ==
--- OUTSIDE RECORDS SUMMARY | 2024-09-04 11:56 | XMS_ITS | Clinical Summary ---
Author Organization [facility] Address [address] [place] [address] Phone Care Team Providers Care Sales And Service Specialist Name Role Phone Obdulia Horne MD Primary Care Provider Allergies No known active allergies Active Problems Problem Noted Date Diagnosed Date Bunion, right foot 05/08/2024 Contracture, right foot 05/08/2024 Hammertoes of both feet 05/08/2024 Social History Tobacco Use Types Packs/Day Years [...] Department Care Team (Latest Contact Info) Description 10/24/2024 1:00 PM EDT Office Visit Orthopedic Surgery - [place] [address] [phone] Clemente Nevarez DPM [address] [address] 01/03/2025 7:30 AM EDT Hospital Encounter [facility] Main OR [address] [place] [phone] Clemente Nevarez DPM [address] [address] 01/03/2025 7:30 AM EDT - 01/03/2025 9:30 AM EDT Surgery [facility] Main OR [address] [place] [phone] Clemente Nevarez, DPM [address] [address] CHEILECTOMY RIGHT GREAT TOE [34274 (CPT??)] Scheduled Procedures Name Priority Associated Diagnoses Date/Ti me CHEILECTOMY GREAT TOE Bunion, right foot Contracture, right foot Hammertoes of both feet 01/03/2025 7:30 AM EDT ARTHROPLASTY TOE Bunion, right foot Contracture, right foot Hammertoes of both feet 01/03/2025 7:30 AM EDT Health Maintenance Due Date [...] Influencers of Health Screening 11/17/2023 COVID-19 Vaccine ( - 2023-2 5 season) 2023 07/07/2020, 06/20/2020, 05/30/2020 Influenza Vaccine (Season Ended) 2024 01/31/2014 RSV Immunization Adult Patients (1 - 1-dose 75+ series) 11/25/2039 HIB [...] age to complete this topic Meningococcal B Vaccine Aged Out No l onger eligible based on patient's age to complete [...] to complete this topic Insurance MEDICAID - [place] Care Teams Sales And Service Specialist Relationship Specialty Start Date End Date Obdulia Horne MD [address] [place] [address] [place] [address] PCP - General 09/08/23
[2024-09-04 15:12] LABS: Alanine Aminotransferase 25 U/L (0-31); Albumin Level 4.3 g/dL (3.5-5.0); Alkaline Phosphatase 66 U/L (39-117); Anion Gap 11 (12-20); Aspartate Amino Transferase 26 U/L (5-31); Bilirubin Total 0.5 mg/dL (0.0-1.0); Blood Urea Nitrogen 22 mg/dL (9-16); Calcium 9.1 mg/dL (8.4-10.2); Carbon Dioxide 29 mmol/L (22-29); Chloride 103 mmol/L (96-108); Cholesterol 185 mg/dL (<200); Estimated Glomerular Filt Rate > 60; Glucose Random 91 mg/dL (60-115); HDL Cholesterol 65 mg/dL (>40); LDL Cholesterol Calculated 111 mg/dL (<100); Sodium 139 mmol/L (135-145); Total Protein 7.3 g/dL (6.5-8.0); Triglycerides 49 mg/dL (<150)
== END 2024-09-04 10:28 | disposition home or self-care (01) ==
LOC: HO.LAB 10:27
PROVIDERS: PCP Internal Medicine; Visit Provider Internal Medicine
DX: E03.9 Hypothyroidism, unspecified (principal); E78.00 Pure hypercholesterolemia, unspecified; I10 Essential (primary) hypertension; K21.9 Gastro-esophageal reflux disease without esophagitis
CPT/HCPCS: 36415; 80053; 80061; 84443